=== PATIENT | female | born 1935 | race Caucasian/White ===

== ENCOUNTER 2017-04-20 11:46 | Emergency (ER) | payer MEDICARE ==
[~2017-04-20] VITALS: Ht 154.9 cm; Wt 136.0 kg
[~2017-04-20 11:46] MED LIST: ACET325T51 PO; AMLO2.5T2 PO; ASPI-973 PO; ATEN25TA PO; CALC-890 PO; LOPE1TAB13 PO; LOSA25TA21 PO; OMEG-38 PO; RANI150C4 PO; SIMV20TA4 PO
[2017-04-20 11:54] VITALS: BP 158/50; PULSE 54; RESP 16; O2SAT 96
--- NOTE | 2017-04-20 12:33 | ED.REPORT ---
HPI-Rash / Abscess Date of Service April 20, 2017 ED Provider: Víctor Anne PA-C Kamla is an 81-year-old female with a history of stage III kidney disease, hypertension, hyperlipidemia present with a chief complaint of a rash. Rashes first noticed approximately 3 days ago as small spots on her forearms, then noticed on her abdomen and back and yesterday noted on her legs. She reports some itching on her face and forearms, as well as swelling in her earlobes. Denies swelling of her tongue, lips, sensation of throat closure, difficulty breathing, wheezing, shortness of breath, cough, chest tightness. Patient reports taking a 1 week course of Augmentin which ended approximately 7 days ago , for urinary tract infection. Admits sun exposure yesterday while gardening. Denies new lotions, detergents, soap, exposures. Nursing Notes Stated Complaint: ALLERGIC REACTION/PRESCRIPTION Chief Complaint: Allergic Reaction Nursing Notes Reviewed: Yes Allergies: Coded Allergies: morphine (Verified Allergy, Severe, Hallucinations, 05/24/10) lisinopril (Verified Allergy, Intermediate, Cough, 05/24/10) amoxicillin (Verified Adverse Reaction, Unknown, Rash,Itching,, 04/20/17) clavulanic acid (Verified Adverse Reaction, Unknown, Rash,Itching,, ) Scheduled Acetaminophen (Acetaminophen) 325 Mg Tablet 650 MG PO QID Amlodipine (Norvasc) 2.5 Mg Tablet 2.5 MG PO DAILY Aspirin (Aspirin) 81 Mg Tablet 81 MG PO DAILY Atenolol (Atenolol) 25 Mg Tablet 25 MG PO DAILY Calcium Carbonate/Vitamin D3 (Calcium 600 + Vit D3 Tablet) 1 Each Tablet 1 EACH PO DAILY Loperamide/Simethicone (Imodium Multi-Symptom Rel Cplt) 1 Each Tablet 2 EACH PO DAILY Losartan Potassium (Losartan Potassium) 25 Mg Tablet 25 MG PO BID Methylprednisolone (Medrol) 21 Tab/Pkg Tablet 1 TAB PO UD Follow package instructions Enochs-3/Dha/Epa/Fish Oil (Fish Oil 1,000 mg Softgel) 1 Each Capsule 1 EACH PO DAILY Ranitidine (Ranitidine) 150 Mg Capsule 150 MG PO BID Simvastatin (Simvastatin) 20 Mg Tablet 20 MG PO HS General Time Seen by MD: 11:55 Chief Complaint Rash Past Medical History Past Medical History Hypertension, hyperlipidemia, stage III kidney disease. Smoking History Former Smoker Review of Systems Review of Systems Note: Negative unless stated otherwise in history of present illness Physical Exam General: Well appearing, well developed, well nourished, no acute distress. Skin: Blanching, maculopapular rash widely dispersed over back, with coalescing lesions along the waistband area. Widely dispersed macular rash over face, abdomen, arms and legs, some lesions blanching and others not. Palms and soles are spared. Superficial sunburn noted on upper arms, forearms, face and ears. Head: Atraumatic, normocephalic. No mastoid tenderness. Eyes: No scleral icterus or injection. No discharge. PERRL. Vision grossly intact. Ears: Pinna and tragus nontender with manipulation. External auditory canal patent, atraumatic and without discharge. Tympanic membrane lerma, shiny and translucent without fluid, bulging, retraction or perforation. Hearing grossly intact. Nose: Symmetrical, nares patent without discharge. No frontal or maxillary sinus tenderness. Mouth/pharynx: Lips normal to inspection with no evidence of angioedema. Normal dentition, mucus membranes moist and without lesions. Tonsils 2+ and symmetrical, uvula midline. Pharynx noninjected, no cobblestoning or discharge. Voice clear. Neck: No tenderness or lymphadenopathy. Trachea midline. Respiratory: Regular rate and rhythm. Breath sounds present, clear to auscultation and equal bilaterally. No respiratory distress. No increased work of breathing, speaks in complete sentences. Cardiovascular: Regular rate and rhythm, without murmur, gallop or rub. No pedal edema. Gastrointestinal: Abdomen flat and non-tender without guarding or rebound. Bowel sounds normoactive. Neurological: Grossly nonfocal. Psychological: Alert and oriented. Speech appropriate, linear and logical. Behavior appropriate. Initial Vital Signs Vital Signs (First) Date Time Temp Pulse Resp B/P Pulse Ox O2 Delivery O2 Flow Rate FiO2 04/20/17 11:54 36.5 54 16 158/50 96 Room Air Initial VS: Vital signs normal Re-Eval/Medical Decision Med Decision/Clinical Course I discussed this case with Dr. Mckeon who met with and examined the patient. 81-year-old female presents with a chief complaint of a rash which began approximately 3 days ago. Patient denies history of exposures other than Augmentin taken for 1 week and discontinued about one week ago. Physical exam reveals a widely dispersed maculopapular rash, with some lesions blanching and others not. No evidence of angioedema, airway compromise. Patient appears well perfused. I see no evidence of anaphylaxis and epinephrine is deferred. I am reassured that this is unlikely to be Soto-Gary syndrome or toxic epidermal necrosis. This is most likely a rash related to an ingestion with a superimposed sunburn. I believe the patient is stable and safe to be discharged home. Patient has been treating herself with Benadryl to minimal effect. Provided 60 mg prednisone as well as a prescription for a Medrol Dosepak. Advised primary care follow-up and provided emergency return precautions. Patient verbalizes understanding of and consent to the plan. Discharge & Departure Impression: Primary Impression: Rash Additional Impression: Superficial sunburn Ruled Out: Anaphylaxis, Acute respiratory distress Disposition: Home Discharge Condition All VS Reviewed: Yes Condition: Stable Patient Instructions: Acute Rash (ED) Additional Instructions: Evaluation in the emergency department for rash includes history and physical examination, both of which are reassuring that this is unlikely to be an immediately dangerous condition such as anaphylaxis. I believe you are stable and safe to be discharged to home. I will provide to you with a prescription for a Medrol dosepak. Please take this medication as directed. Continue taking the Benadryl as you have been if necessary. Make an appointment with your primary care provider for early next week. If the rash clears up, there is no need to follow-up. Otherwise see your primary care provider for further evaluation. Return to the emergency Department for any new or worsening symptoms including sores in your mouth, swelling of the tongue or lips or any difficulty breathing Referrals: Beti Lopez (PCP) EDSupervising Provider for APC: Zahida Suarez MD Attending Statement Patient seen and examined with Mr. Anne. She does not fact have a significant total body rash. Certainly areas of sun exposure have a component of sunburn and the rash looks worse. However non-sun exposed areas are also involved. There is no evidence of urticarial involvement the majority of the rash is definitely blanchable there are some small areas on the anterior calvillo that do not nidia but the majority around do. This certainly is not a Soto- Gary-type reaction. She did recently finish a course of amoxicillin and it could be that this is a reaction to that been exacerbated by the sun exposure. Possibility of a vasculitis is also entertained. Recommended steroid taper and appointment with PCP early next week if the rash has not resolved a skin biopsy would likely be appropriate copies to: Beti Lopez Seth PA-C April 20, 2017 12:33 Zahida Suarez MD April 20, 2017 13:19
[2017-04-20] MEDS ORDERED: MTH4T PO (12:35)
[2017-04-20] MEDS ORDERED: predniSONE 20 mg Tablet PO ONE (12:35)
[2017-04-20 13:49] VITALS: BP 127/53; PULSE 54; RESP 20; O2SAT 99
== END 2017-04-20 13:50 | disposition home or self-care (01) ==
LOC: SED 11:46
DX: R21 Rash and other nonspecific skin eruption (principal); L55.9 Sunburn, unspecified; I12.9 Hypertensive chronic kidney disease with stage 1 through stage 4 chronic kidney disease, or unspecified chronic kidney disease; N18.3 Chronic kidney disease, stage 3 (moderate); E78.5 Hyperlipidemia, unspecified; I25.2 Old myocardial infarction; Z87.891 Personal history of nicotine dependence; Z87.440 Personal history of urinary (tract) infections; Z79.82 Long term (current) use of aspirin; Z88.5 Allergy status to narcotic agent; Z88.8 Allergy status to other drugs, medicaments and biological substances; Z88.0 Allergy status to penicillin